=== PATIENT | male | born 1960 | race Caucasian/White ===

== ENCOUNTER 2019-04-23 21:06 | Inpatient (IN) | payer SELFPAY ==
[2019-04-23] MEDS ORDERED: Nitroglycerin 100MG/250ML BOT 250 ML ONE (21:40)
[2019-04-23] MEDS ORDERED: Heparin 10,000 UNITS/1 ML VIAL ONE (21:40)
[2019-04-23] MEDS ORDERED: Clopidogrel Bisulfate 300 MG TAB ONE (22:13)
[2019-04-23] MEDS ORDERED: Nitroglycerin 0.4 MG TAB (25 Tab Bottle) SL PRN (22:26)
[2019-04-23] MEDS ORDERED: Morphine 2 MG/ML SYRINGE SLOW IVP PRN (22:26)
[2019-04-23] MEDS ORDERED: Sodium Chloride 0.9% 1,000 ML IV SCH (22:30)
[2019-04-23 22:44] VITALS: BMI 38.5
--- NOTE | 2019-04-23 23:11 | CON ---
DATE OF CONSULTATION: HISTORY OF PRESENT ILLNESS: Baldemar Jamison is a 58-year-old white male from [place], who presents with an inferior STEMI. He has been having intermittent chest discomfort for several months. Today, he had onset of the discomfort at 8:30 a.m., but it seemed to ease up somewhat aound 11 a.m. He went and did some work and then later in the afternoon, it again became more intense. He went to the EMS. EKG showed inferior STEMI and the helicopter was sent to pick him up. He was brought directly to the [facility] lab[facility]. PAST MEDICAL HISTORY: Hypertension. No history of diabetes or hypercholesterolemia. MEDICATIONS: Lisinopril 15 daily. ALLERGIES: NONE. PAST SURGICAL HISTORY: Repair of torn biceps muscle. SOCIAL HISTORY: He smokes 1/2 pack per day. He occasionally drinks. FAMILY HISTORY: Negative for coronary artery disease in the immediate family. REVIEW OF SYSTEMS: Unremarkable. PHYSICAL EXAMINATION: VITAL SIGNS: Blood pressure 130/72, pulse of 90. HEENT: PERRL. NECK: Supple. CHEST: Clear. CARDIAC: S1, S2 normal without any S3, S4, or murmurs. ABDOMEN: Obese. Normal bowel sounds without tenderness or organomegaly. EXTREMITIES: Revealed no clubbing, cyanosis, or edema. NEUROLOGIC: Grossly intact. LABORATORY DATA: EKG reveals ST elevation in II, III, and F with reciprocal changes across the precordium. No labs available. IMPRESSION: 1. Inferior ST-segment elevation myocardial infarction. 2. Smoker. 3. Hypertension. 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 Risks of catheterization were briefly discussed including , myocardial infarction, emergent CABG, restenosis, stent thrombosis, vessel perforation, dye allergy, kidney damage, vascular injury, etc. Job ID: [id number] [facility]
[2019-04-24 04:50] LABS: #Eosinphils 0.2 thou/uL (0.0-0.7); #Lymphocytes 2.6 thou/uL (1.20-3.40); #Monocytes 0.8 thou/uL (0.11-0.59); #Neutrophils 6.9 thou/uL (1.40-6.50); %Basophils 0.4 % (0.0-1.0); %Eosinophils 2.3 % (0.0-10.0); %Lymphocytes 24.4 % (21.0-51.0); %Monocytes 7.5 % (0.0-10.0); %Neutrophils 65.5 % (42.0-75.0); Hemoglobin 13.1 g/dL (14.0-18.0); Mean Corpuscular HGB CONC 35.3 g/dL (32.0-36.0); Mean Corpuscular Hemoglobin 34.5 pg (27.0-31.0); Mean Corpuscular Volume 97.9 fL (78.0-98.0); Mean Platelet Volume 8.7 fL (7.4-10.4); Platelet Count 187 thou/uL (130-400); RBC Distribution Width 11.5 % (11.5-14.5); White Blood Cell (WBC) Count 10.5 thou/uL (4.8-10.8)
[2019-04-24 05:11] LABS: ALT (SGPT) 30 U/L (8-55); AST (SGOT) 95 U/L (5-34); Alkaline Phosphatase 87 U/L (40-110); Anion Gap 12 mmol/L (10-20); BUN (Urea Nitrogen) 11 mg/dL (8.4-25.7); Bilirubin, Total 0.3 mg/dL (0.2-1.2); Calc. Creatinine Clearance 160 mL/min (70-130); Carbon Dioxide 21 mmol/L (22-29); Cardiac Risk 4.7 (Less than 4.5); Chloride 106 mmol/L (98-107); Cholesterol 155 mg/dl (< 200 Desired); Estimated GFR-MDRD Greater than 90; Globulin 2.5 g/dL (2.4-3.5); Glucose 113 mg/dL (70-105); HDL Cholesterol 33 mg/dL (>60 Neg Risk); LDL Cholesterol, Calculated 81 mg/dL; Protein, Total 6.5 g/dL (6.0-8.3); Sodium 135 mmol/L (136-145); Triglycerides 207 mg/dL (Less than 150)
[2019-04-24 05:20] LABS: Troponin I 32.455 ng/mL (< 0.028)
[2019-04-24] MEDS: Carvedilol 3.125 MG TAB PO SCH ×2 (07:57→16:30)
[2019-04-24] MEDS: Clopidogrel Bisulfate 75 MG TAB PO SCH (07:57)
[2019-04-24] MEDS: Aspirin Chewable 81 MG TAB PO SCH (07:58)
[2019-04-24 08:50] LABS: ALT (SGPT) 20 U/L (8-55); AST (SGOT) 25 U/L (5-34); Albumin 3.8 g/dL (3.5-5.0); Alkaline Phosphatase 79 U/L (40-110); Anion Gap 15 mmol/L (10-20); BUN (Urea Nitrogen) 13 mg/dL (8.4-25.7); Bilirubin, Total 0.3 mg/dL (0.2-1.2); Calc. Creatinine Clearance 152 mL/min (70-130); Calcium 8.6 mg/dL (7.8-10.44); Carbon Dioxide 17 mmol/L (22-29); Chloride 95 mmol/L (98-107); Estimated GFR-MDRD Greater than 90; Globulin 2.3 g/dL (2.4-3.5); Glucose 134 mg/dL (70-105); Potassium 3.2 mmol/L (3.5-5.1); Protein, Total 6.1 g/dL (6.0-8.3); Sodium 124 mmol/L (136-145)
[2019-04-24 09:11] LABS: CKMB 9.9 ng/mL (0-6.6); Troponin I 0.333 ng/mL (< 0.028)
[2019-04-24 09:34] LABS: Band 4 % (5-11); Eosinophils 3 % (0-10); Hemoglobin 12.9 g/dL (14.0-18.0); Lymphocytes 12 % (21-51); MDiff Complete? YES; Mean Corpuscular HGB CONC 34.5 g/dL (32.0-36.0); Mean Corpuscular Hemoglobin 34.6 pg (27.0-31.0); Mean Platelet Volume 9.4 fL (7.4-10.4); Metamyelocyte 1 % (0-0); Monocytes 5 % (0-10); Neutrophil 75 % (42-75); Nucleated RBC 1 % (0); Platelet Count 184 thou/uL (130-400); Platelet Morphology Comment Appears Adequate; RBC Distribution Width 11.7 % (11.5-14.5); RBC Morphology Normal; Red Blood Cell (RBC) Count 3.74 mill/uL (4.70-6.10); White Blood Cell (WBC) Count 12.3 thou/uL (4.8-10.8)
[2019-04-24 10:40] LABS: Troponin I 27.506 ng/mL (< 0.028)
--- NOTE | 2019-04-24 13:25 | CON ---
DATE OF CONSULTATION: 04/24/2019 SERVICE: Pulmonary Medicine. REASON FOR CONSULTATION: ICU patient. HISTORY OF PRESENT ILLNESS: The patient is a 58-year-old white male with past medical history significant for intermittent chest discomfort. He noticed that yesterday at 4 o'clock in the morning, but it abated to some degree. He ultimately went to work. Later on, he had recurrence of the chest discomfort. This time, it was more severe, and at 8 p.m. after work was over, he presented to the emergency department. At that location, he was identified as having an ST-elevation myocardial infarction. He was urgently taken down for cardiac catheterization, and a culprit lesion was identified, drug-eluting stent was placed in the mid circumflex and in the obtuse marginal. He still had a little bit of chest discomfort following the procedure, but otherwise, he has returned to his usual state of health. Overnight, he did not have any significant events. PAST MEDICAL HISTORY: 1. Hypertension. 2. Coronary artery disease. 3. Dyslipidemia. PAST SURGICAL HISTORY: 1. Percutaneous coronary intervention with drug-eluting stent x2. 2. Repair of biceps muscle. SOCIAL HISTORY: He smokes a half pack on a daily basis and has greater than [id number] history of smoking. Denies any alcohol or illicit drugs. He has no exposure to chemicals, dust, asbestos or tuberculosis. FAMILY HISTORY: Noncontributory. ALLERGIES: NO KNOWN DRUG ALLERGIES. MEDICATIONS: List of his inpatient medications was reviewed. No specific updates were made at this time. REVIEW OF SYSTEMS: General, head, ears, eyes, nose, throat, cardiovascular, respiratory, GI, , musculoskeletal, neurologic, and skin are negative except as mentioned in the HPI. PHYSICAL EXAMINATION: VITAL SIGNS: Afebrile, pulse 68, blood pressure 115/77, respirations 16, and saturation 98%, currently on room air. GENERAL: The patient is awake and alert, in no apparent distress. LUNGS: Wonderful air entry. No prolonged expiratory phase or wheezing is appreciated. HEART: Normal rate, regular. ABDOMEN: Soft, nontender, and nondistended. Bowel sounds are positive. MUSCULOSKELETAL: No cyanosis or clubbing. There is no pitting in the bilateral lower extremities. NEUROLOGIC: Grossly nonfocal. LABORATORY DATA: Troponin 27.5. Basic metabolic profile and liver function studies are otherwise unremarkable. Triglyceride 207. Hemoglobin 13.1. CBC is otherwise unremarkable with a normal platelet count. ASSESSMENT: 1. ST-elevation myocardial infarction. 2. Coronary artery disease, status post drug-eluting stent x2, in second obtuse marginal and left circumflex. 3. Morbid obesity. DISCUSSION AND PLAN: The patient's screen is positive for obstructive sleep apnea. I have counseled him to discuss this with his primary care physician once he is discharged from the hospital. Pulmonary will follow in this location, but from purely respiratory standpoint, he is stable for transition to the floor. When he leaves the ICU, he will have no further requirements for Pulmonary or Critical Care opinion, and I will sign off. Job ID: [id number]
[2019-04-24 16:35] LABS: Critical Call Chem Troponin I RESULT DECREASING; Troponin I 19.659 ng/mL (< 0.028)
[2019-04-24] MEDS ORDERED: Atorvastatin Calcium 40 MG TAB PO SCH (21:00)
[2019-04-24] MEDS: Atorvastatin Calcium 20 MG TAB PO SCH (21:34)
[2019-04-25] MEDS: Clopidogrel Bisulfate 75 MG TAB PO SCH (08:25)
[2019-04-25] MEDS: Aspirin Chewable 81 MG TAB PO SCH (08:25)
[2019-04-25] MEDS: Carvedilol 3.125 MG TAB PO SCH ×2 (08:25→17:49)
--- NOTE | 2019-04-25 09:10 | PRG ---
DATE OF SERVICE: 04/25/2019 SERVICE: Pulmonary Medicine. INTERVAL HISTORY: The patient is doing really well from respiratory standpoint. Breathing comfortably. No complaints of chest discomfort, nausea, or vomiting. There were no overnight events. His appetite is improving, though he does not want the food that we have available for him. Otherwise, there has been no interval change to his condition. PHYSICAL EXAMINATION: VITAL SIGNS: Afebrile with maximum temperature of 99.2; pulse 69; blood pressure 90/68; respirations 20; and saturation 96%, currently on room air. GENERAL: The patient is awake and alert, in no apparent distress. LUNGS: Good air entry bilaterally. There are no crackles, wheezing, or rhonchi present. HEART: Normal rate, regular. ABDOMEN: Soft, nontender, and nondistended. Bowel sounds are positive. MUSCULOSKELETAL: No cyanosis or clubbing. There is no pitting in bilateral lower extremities. NEUROLOGIC: Grossly nonfocal. LABORATORY DATA: WBC 10.5, hemoglobin 13.1, and platelets 187,000. Basic metabolic profile is unremarkable. Liver function studies are negative. Troponin is downtrending and peaked out at 32. ASSESSMENT: 1. Acute ST-elevation myocardial infarction. 2. Coronary artery disease, status post drug-eluting stent x2 in the second obtuse marginal and left circumflex. 3. Morbid obesity. DISCUSSION AND PLAN: The patient is stable from respiratory standpoint, can likely be transitioned out of the ICU to the telemetry unit. At this point, the patient has no further requirements for inpatient Pulmonary or Critical Care opinion, and I will sign off. Please call with additional questions or concerns through time. Job ID: [id number]
[2019-04-25] MEDS: Atorvastatin Calcium 20 MG TAB PO SCH (20:43)
[2019-04-26] MEDS: Aspirin Chewable 81 MG TAB PO SCH (08:37)
[2019-04-26] MEDS: Carvedilol 3.125 MG TAB PO SCH (08:37)
[2019-04-26] MEDS: Clopidogrel Bisulfate 75 MG TAB PO SCH (08:37)
[2019-04-26 11:36] VITALS: BP 122/81; TEMP 98
== END 2019-04-26 11:50 | disposition home or self-care (01) | DRG 247 ==
LOC: CCL 21:06 → CCU 21:34 → 2NO 04-25 14:29
PROVIDERS: ADMIT Internal Medicine Cardiovascular Disease; ATTEND Internal Medicine Cardiovascular Disease
PROC: 027135Z Dilation of Coronary Artery, Two Arteries with Two Drug-eluting Intraluminal Devices, Percutaneous Approach (ICD-10-PCS; principal; 2019-04-23)
PROC: 02C03ZZ Extirpation of Matter from Coronary Artery, One Artery, Percutaneous Approach (ICD-10-PCS; 2019-04-23)
PROC: B2111ZZ Fluoroscopy of Multiple Coronary Arteries using Low Osmolar Contrast (ICD-10-PCS; 2019-04-23)
DX: I21.19 ST elevation (STEMI) myocardial infarction involving other coronary artery of inferior wall (principal); I10 Essential (primary) hypertension; F17.200 Nicotine dependence, unspecified, uncomplicated; I25.10 Atherosclerotic heart disease of native coronary artery without angina pectoris; E66.01 Morbid (severe) obesity due to excess calories; Z79.899 Other long term (current) drug therapy; Z95.5 Presence of coronary angioplasty implant and graft; Z68.38 Body mass index [BMI] 38.0-38.9, adult
CPT/HCPCS: 36415; 80053; 80061; 82553; 84484; 85025; 85347; 92941; 93005; 93010; 93306; 93454; 93798; C1725; C1769; C1874; C1887; C9606; J1644; J2270; J7620